=== PATIENT | male | born 1980 ===

== ENCOUNTER 2018-07-01 14:38 | Emergency (ER) | payer BC ==
[2018-07-01 14:46] VITALS: BP 115/82; PULSE 81; RESP 16; TEMP 98.6; O2SAT 98
--- NOTE | 2018-07-01 15:13 | ED PDOC ---
HPI: General Adult Time Seen by Provider: 07/01/18 14:47 Chief Complaint (Nursing): ENT Problem Chief Complaint (Provider): Sore throat History Per: Patient History/Exam Limitations: no limitations Onset/Duration Of Symptoms: Days (x2) Current Symptoms Are (Timing): Still Present Additional Complaint(s): Harish Zapata is a 37 year old male, with no significant past medical history, who presents to the emergency department for evaluation of sore throat x 2 days. Patient states he was walking and drinking water when he heard a "pop" sound from his throat in area of "[place]." He states since this happened 2 days ago he feels pain when he swallows anything but can eat and drink. He denies any fever or chills, no shortness of breath or vomiting. PMD: None Past Medical History Reviewed: Historical Data, Nursing Documentation, Vital Signs Vital Signs: Last Vital Signs Temp 98.6 F 07/01/18 14:43 Pulse 81 07/01/18 14:43 Resp 16 07/01/18 14:43 BP 115/82 07/01/18 14:43 Pulse Ox 98 07/01/18 15:16 - Medical History PMH: No Chronic Diseases - Surgical History Surgical History: Hernia Repair Other surgeries: right achilles tendon repair, right knee surgery - Family History Family History: States: No Known Family Hx - Living Arrangements Living Arrangements: With Family - Social History Current smoker - smoking cessation education provided: No Alcohol: None Drugs: Denies - Allergies Allergies/Adverse Reactions: Allergies Allergy/AdvReac Type Severity Reaction Status Date / Time No Known Allergies Allergy Verified 07/01/18 14:43 Review of Systems ROS Statement: Except As Marked, All Systems Reviewed And Found Negative ENT: Positive for: Throat Pain Respiratory: Negative for: Cough, Shortness of Breath Gastrointestinal: Negative for: Nausea, Vomiting Neurological: Negative for: Headache, Dizziness Physical Exam - Reviewed Nursing Documentation Reviewed: Yes Vital Signs Reviewed: Yes - Physical Exam Appears: Positive for: Well, Non-toxic, No Acute Distress Head Exam: Positive for: ATRAUMATIC, NORMOCEPHALIC Skin: Positive for: Normal Color. Negative for: Rash Eye Exam: Positive for: Normal appearance ENT: Positive for: Normal ENT Inspection. Negative for: Nasal Congestion, Pharyngeal Erythema, Tonsillar Exudate, Tonsillar Swelling Neck: Positive for: Normal, Painless ROM. Negative for: Pain On Movement Of Neck Cardiovascular/Chest: Positive for: Regular Rate, Rhythm Respiratory: Positive for: Normal Breath Sounds. Negative for: Wheezing, Respiratory Distress Extremity: Positive for: Normal ROM (upper and lower extremities). Negative for: Deformity Neurologic/Psych: Positive for: Alert, Oriented - ECG O2 Sat by Pulse Oximetry: 98 (RA) Pulse Ox Interpretation: Normal - Other Rad X-ray soft tissue neck X-Ray: Interpreted by Me, Viewed By Me X-Ray Interpretation: no acute finding Medical Decision Making Medical Decision Making: Time: 14:47 Initial Impression: 37 y/ male with dysphagia Initial Plan: --Neck soft tissue [RAD] Patient is aware of x-ray results, all questions answered. Advised NSAID's for pain and follow up with ENT for any persistent symptoms. Scribe Attestation: Documented by Domenic Mckee, acting as a scribe for Grace Yan PA-C Provider Scribe Attestation: All medical record entries made by the Scribe were at my direction and personally dictated by me. I have reviewed the chart and agree that the record accurately reflects my personal performance of the history, physical exam, medical decision making, and the department course for this patient. I have also personally directed, reviewed, and agree with the discharge instructions and disposition. Disposition - Clinical Impression Clinical Impression: Throat discomfort - Patient ED Disposition Is Patient to be Admitted: No Counseled Patient/Family Regarding: Studies Performed, Diagnosis, Need For Followup - Disposition Referrals: Jassi Johnson MD [Staff Provider] - Disposition: Routine/Home Disposition Time: 16:05 Condition: STABLE Additional Instructions: Ibuprofen for pain as needed. If symptoms do not improve, make appointment with ear, nose and throat specialist for further evaluation. Instructions: Sore Throat in Adults Forms: Andro[employer] ([place])
--- NOTE | 2018-07-01 15:59 | RAD ---
Date of service: 07/01/2018 PROCEDURE: Radiographs of neck soft tissues HISTORY: pain when swallowing COMPARISON: None available. TECHNIQUE: Frontal and lateral radiographs of the neck. FINDINGS: No fracture visualized. Soft tissues are unremarkable. IMPRESSION: Unremarkable radiographs of the neck.
== END 2018-07-01 16:13 | disposition home or self-care (01) ==
LOC: H.ER 14:38
DX: R07.0 Pain in throat (principal)